=== PATIENT | male | born 1975 | race African-American/Black ===

== ENCOUNTER 2023-07-29 23:09 | Observation (INO) ==
[2023-07-29 23:47] LABS: Hematocrit 44.1 % (38-53); Hemoglobin 14.5 g/dL (13.2-16.3); Mean Corpuscular Hemoglobin 27.7 pg (27-33); Mean Corpuscular Volume 84.1 fL (80-97); Red Blood Count 5.24 10^6/uL (4.06-5.63); Red Cell Distribution Width 14.5 % (12-17); White Blood Count 5.1 10^3/uL (3.6-10.2)
[2023-07-29 23:56] LABS: Activated Partial Thrombo Time 32.1 seconds (26.0-38.0); INR 1.05 (0.83-1.13)
[2023-07-30 00:09] LABS: Albumin 4.9 g/dL (3.2-5.2); Albumin/Globulin Ratio 1.8 (1-3); Calcium 9.9 mg/dL (8.6-10.3); Creatinine, Serum 1.41 mg/dL (0.67-1.17); Globulin 2.8 g/dL (2-4); HDL Cholesterol 61.6 mg/dL; Potassium 3.7 mmol/L (3.5-5.0); Total Bilirubin 0.6 mg/dL (0.2-1.0); Total Protein 7.7 g/dL (6.4-8.9); eGFR CKD-EPI 61.9 (>60)
[2023-07-30] MEDS: Iodixanol (CONTRAST) 320 MG/ML 100 ML SDV IV ONE (00:09)
[2023-07-30] MEDS: Aspirin EC 325 mg TAB.EC PO ONE (00:43)
[2023-07-30 00:45] LABS: ABS Eosinophils 0.2 10^3/uL (0.0-0.5); ABS Lymphocytes 2.5 10^3/uL (1.0-4.8); ABS Monocytes 0.6 10^3/uL (0.0-1.1); ABS Neutrophils 1.9 10^3/uL (1.5-7.6); ABS Nucleated RBC 0.01 10^3/ul; Eosinophil % 3.4 %; Giant Platelets Present; Large Platelets Present; Lymphocyte % 49.5 %; Mean Platelet Volume 9.4 fL (7.5-11.2); Nucleated Red Blood Cells % 0.2 %/100WBC (0.0-0.8); Platelet Count 188 10^3/uL (150-450)
[2023-07-30 00:57] LABS: Urine Appearance Clear; Urine Bilirubin Negative (Negative); Urine Blood Negative (Negative); Urine Color Colorless; Urine Glucose Negative (Negative); Urine Ketones Negative (Negative); Urine Nitrite Negative (Negative); Urine Protein Negative (Negative); Urine Urobilinogen Negative (Negative)
[2023-07-30 01:09] LABS: High Sensitivity Troponin 1 Hr 5 pg/mL (<20)
[2023-07-30] MEDS: NS 0.9% 1000 ml BAG 1,000 ML IV ONE (01:45)
[2023-07-30 06:18] LABS: Calcium 9.6 mg/dL (8.6-10.3); Creatinine, Serum 1.26 mg/dL (0.67-1.17); Magnesium 2.4 mg/dL (1.9-2.7); Phosphorus 3.9 mg/dL (2.5-5.0); Potassium 3.9 mmol/L (3.5-5.0); eGFR CKD-EPI 70.8 (>60)
[2023-07-30] MEDS ORDERED: Labetalol IV 5 MG/ML 20 ml VIAL IV PUSH PRN (06:29)
[2023-07-30] MEDS: Enoxaparin 40 MG/0.4 ML SYR SUBCUT SCH (12:29)
[2023-07-30 14:06] VITALS: BP 149/92
== END 2023-07-30 16:47 | disposition home or self-care (01) ==
LOC: EDHOLD 23:09 → ED 23:09 → SUATTDRO 07-30 03:18 → MEDTELE 07-30 05:12
PROVIDERS: ADMIT Internal Medicine; ATTEND Student in an Organized Health Care Education/Training Program